=== PATIENT | female | born 1960 | race Caucasian/White ===

== ENCOUNTER 2021-09-16 05:38 | Outpatient (CLI) | payer OTHER ==
[~2021-09-16] VITALS: Ht 162.6 cm; Wt 94.6 kg
[2021-09-23] MEDS ORDERED: DOCU-143 PO (13:47)
== END 2021-09-16 11:33 | disposition home or self-care (01) ==
LOC: PREOP 05:38
PROVIDERS: ATTEND Surgery
DX: Z01.818 Encounter for other preprocedural examination (principal)

== ENCOUNTER → 2021-09-23 | Day surgery (SDC) | payer OTHER ==
[~2021-09-23] VITALS: Ht 162.6 cm; Wt 94.6 kg
[~2021-09-23] MED LIST: DOCU-143 PO; LACTATED RINGERS 1,000 ML IV ONE; LACTATED RINGERS 1,000 ML IV STA; MIDAZOLAM 2 MG/2 ML (VERSED) VIAL ONE; PROPOFOL INJECTION 50 ML IV ONE
[2021-09-23 11:25] VITALS: BP 136/68
--- NOTE | 2021-09-23 13:48 | Discharge Inst-Simple/Standard ---
Discharge Inst-Standard Discharge Medications New, Converted or Re-Newed RX: Transmitted to Pharmacy Patient Instructions/Follow Up Plan of Care/Instructions/FU: 2 weeks Mary Activity as Tolerated: Yes Discharge Diet: Regular Diet JOHN HODGES DO Sep 23, 2021 13:48
[2021-09-23 13:52] VITALS: BP 87/51
--- NOTE | 2021-09-23 13:52 | Progress Note-Post Operative ---
Post-Operative Progess Note Surgeon (s)/Straight Ruling Machine Operator (s) Surgeon JOHN HODGES DO Straight Ruling Machine Operator: na Pre-Operative Diagnosis screening colonoscopy Post-Operative Diagnosis post anal fissure, hemorrhoids Procedure & Operative Findings Date of Procedure 09/23/21 Procedure Performed/Findings colonoscopy Anesthesia Type per bridge crew member Estimated Blood Loss Estimated blood loss (mL): none Specimens/Packing Specimens Removed none JOHN HODGES DO Sep 23, 2021 13:52
[2021-09-23 14:25] VITALS: BP 87/51
--- NOTE | 2021-09-23 15:15 | Anesthesia-General Post-Op ---
MAC Patient Condition Mental Status/LOC: Same as Preop Cardiovascular: Satisfactory Nausea/Vomiting: Absent Respiratory: Satisfactory Pain: Controlled Complications: Absent Post Op Complications Complications None Follow Up Care/Instructions Patient Instructions None needed. Anesthesiology Discharge Order Discharge Order Patient is doing well, no complaints, stable vital signs, no apparent adverse anesthesia problems. No complications reported per nursing. MOLINA BOYD CRNA Sep 23, 2021 15:15
--- NOTE | 2021-09-23 20:42 | OPERATIVE REPORT ---
DATE OF SERVICE: 09/23/2021 PREOPERATIVE DIAGNOSIS: Screening colonoscopy. POSTOPERATIVE DIAGNOSES: Posterior anal fissure and hemorrhoids. PROCEDURE: Colonoscopy. SURGEON: John Hernandez DO ANESTHESIA: Per WINDOW TRIMMER APPRENTICE. ESTIMATED BLOOD LOSS: None. COMPLICATIONS: None. INDICATIONS: The patient is a 61-year-old female, needing screening colonoscopy. She understands risks and benefits of procedure and wishes to proceed. Consent was signed in the chart. DESCRIPTION OF PROCEDURE: The patient was taken to endoscopy suite, placed in left lateral recumbent position. Timeout was performed. Digital rectal exam was performed noting posterior anal fissure and some internal hemorrhoids. Scope was inserted in the rectum and advanced all the way to cecum with minimal difficulty. Prep was adequate. Scope was then slowly retracted back. No polyps, masses or ulcerations within the cecum, ascending, transverse, descending and sigmoid colon. Once in the rectum, scope was retroflexed noting no other pathology. Scope was returned to its normal position, slowly withdrawn until completely removed. The patient tolerated procedure well without any complications, taken to recovery room in stable condition. RECOMMENDATIONS: The patient will be started on Colace 100 mg twice a day. She will follow up in our office in 2 weeks to see if anal fissure does not improve. The patient will need repeat colonoscopy in 10 years unless family history of colon cancer, which would then be 5 years. Any issues before that be seen at that time. In regards to anal fissure if not improved, we would place on diltiazem cream and if that does not heal we would consider left lateral internal sphincterotomy. Hemorrhoids are bothersome, we would also consider hemorrhoid treatment. Job ID: [id number] DocumentID: [id number] Dictated Date: 09/23/2021 13:55:01 Icer Machine Date: 09/23/2021 20:42:22 Dictated By: JOHN HERNANDEZ DO
== END | disposition home or self-care (01) ==
LOC: ENDO 11:02
PROVIDERS: ATTEND Surgery
DX: Z12.11 Encounter for screening for malignant neoplasm of colon (principal); K60.2 Anal fissure, unspecified; K64.8 Other hemorrhoids